=== PATIENT | male | born 1950 | race Caucasian/White ===

== ENCOUNTER 2019-08-23 09:35 | Emergency (ER) | payer MEDICARE, BC ==
[2019-08-23] MEDS ORDERED: Ondansetron 4 MG/2 ML SDV IVPUSH ONE (10:20)
[2019-08-23] MEDS ORDERED: Sodium Chloride 0.9% 10 ML Syringe FLUSH PRN (10:20)
[2019-08-23] MEDS ORDERED: HYDROmorphone 1 MG/ML Syringe IVPUSH ONE (10:21)
[2019-08-23] MEDS ORDERED: Iopamidol 612 MG/ML 100 ML Bottle IVPUSH ONE (10:28)
[2019-08-23] MEDS ORDERED: Sodium Chloride 0.9% 10 ML Syringe FLUSH ONE (10:28)
[2019-08-23] MEDS ORDERED: Sodium Chloride 0.9% 1,000 ML IV SCH (10:30)
--- NOTE | 2019-08-23 11:04 | CT ---
CT abdomen and pelvis Technique: Multiple axial sections were obtained from above the dome of the diaphragm inferiorly through the pubic symphysis. Intravenous contrast was utilized. No oral contrast has been given. Delayed images were obtained through the abdomen and pelvis. Findings: Multiple loops of small bowel show wall thickening. Hazy inflammatory change is seen surrounding some of the bowel loops. Visualized lung bases show nothing acute. Liver shows no discrete abnormality. Small hiatal hernia is noted. Spleen size is normal. Adrenal glands show no nodule. Kidneys show symmetric contrast enhancement. Several nonobstructing calculi are seen within the left kidney. Delayed images shows contrast within the ureters and bladder. Parapelvic cyst is noted within the left kidney measuring 2.6 cm. Aorta shows no aneurysm. Pancreas shows no discrete abnormality. Gallbladder contains no calcified gallstones. No retroperitoneal adenopathy is seen. No pelvic mass or adenopathy is seen. Prostate gland is somewhat enlarged and shows calcifications. Impression: 1. Multiple loops of small bowel showing wall thickening and mild surrounding inflammatory change. Findings are compatible with a nonspecific enteritis. 2. Other findings as noted above which are nonacute. Diagnostic code #3 This report was dictated in MDT
--- NOTE | 2019-08-23 11:32 | EDM.PDOC ---
ED HPI GENERAL MEDICAL PROBLEM - General Chief Complaint: Abdominal Pain Stated Complaint: ABDOMINAL PAIN/VOMITING (HAS A KIDNEY STONE) Time Seen by Provider: 08/23/19 10:12 Source of Information: Reports: Patient History Limitations: Reports: No Limitations - History of Present Illness INITIAL COMMENTS - FREE TEXT/NARRATIVE: The patient presents with lower abdominal pain. This started earlier this morning. He had some nausea and vomiting. He has no fever, chills, cough, congestion, chest pain or shortness of breath. He has no dysuria, hematuria or flank pain. He still has his gallbladder and appendix. Onset: Sudden Duration: Hour(s): Location: Reports: Abdomen Quality: Reports: Sharp Severity: Severe Improves with: Reports: None Worsens with: Reports: None Associated Symptoms: Reports: Nausea/Vomiting. Denies: Chest Pain, Cough, Fever /Chills, Headaches, Shortness of Breath Treatments MENTAL HEALTH PROGRAM SPECIALIST: Reports: Other (see below) Other Treatments MENTAL HEALTH PROGRAM SPECIALIST: none Right Abdomen Pain Score (Numeric/FACES): 10 - Related Data Allergies Allergy/AdvReac Type Severity Reaction Status Date / Time No Known Allergies Allergy Verified 10/05/13 15:06 Home Meds: Home Meds Enalapril [Vasotec] 10 mg PO BID 10/05/13 [History] Amoxicillin/Clavulanate K [Augmentin 875-125 MG] 1 tab PO BID #20 tablet [Rx] Multivitamin [Multivitamins] 1 cap PO DAILY 08/23/19 [History] Ondansetron [Zofran ODT] 4 mg PO Q6H PRN #20 tab.dis 08/23/19 [Rx] Past Medical History Cardiovascular History: Reports: Hypertension Musculoskeletal History: Reports: Other (See Below) Other Musculoskeletal History: light index amputation Social & Family History - Tobacco Use Smoking Status *Q: Current Every Day Smoker Years of Tobacco use: 40 Packs/Tins Daily: 0.5 - Caffeine Use Caffeine Use: Reports: Coffee, Soda - Recreational Drug Use Recreational Drug Use: No ED ROS GENERAL - Review of Systems Review Of Systems: See Below Constitutional: Reports: No Symptoms HEENT: Reports: No Symptoms Respiratory: Reports: No Symptoms Cardiovascular: Reports: No Symptoms Endocrine: Reports: No Symptoms GI/Abdominal: Reports: Abdominal Pain, Nausea, Vomiting. Denies: Diarrhea : Reports: No Symptoms Musculoskeletal: Reports: No Symptoms Skin: Reports: No Symptoms ED EXAM, GI/ABD - Physical Exam Exam: See Below Exam Limited By: No Limitations General Appearance: Alert, No Apparent Distress Ears: Normal External Exam Nose: Normal Inspection Head: Atraumatic, Normocephalic Neck: Normal Inspection Respiratory/Chest: No Respiratory Distress, Lungs Clear, Normal Breath Sounds Cardiovascular: Regular Rate, Rhythm, No Edema, No Murmur GI/Abdominal Exam: Soft, No Organomegaly, No Mass, Tender (Moderate to sever with rebound and regidity) Course - Vital Signs Last Recorded V/S: Last Vital Signs Temp 95.7 F L 08/23/19 10:09 Pulse 65 08/23/19 10:09 Resp 22 H 08/23/19 10:09 BP 143/71 H 08/23/19 10:09 Pulse Ox 99 08/23/19 10:09 - Orders/Labs/Meds Orders: Active Orders 24 hr Category Date Time Status Peripheral IV Care [RC] . DIRECTED Care 08/23/19 10:20 Active UA W/MICROSCOPIC [URIN] Stat Lab 08/23/19 10:20 Stop Req Sodium Chloride 0.9% [Normal Saline] 1,000 ml Med 08/23/19 10:30 Active IV ASDIRECTED Sodium Chloride 0.9% [Saline Flush] Med 08/23/19 10:20 Active 10 ml FLUSH ASDIRECTED PRN ED Antiemetic Medication Reflex [OM.PC] Stat Oth 08/23/19 10:20 Ordered Peripheral IV Insertion Adult [OM.PC] Stat Oth 08/23/19 10:20 Ordered Medication Orders Sodium Chloride (Normal Saline) 1,000 mls @ 125 mls/hr IV ASDIRECTED RICH Last Admin: 08/23/19 10:43 Dose: 125 mls/hr Sodium Chloride (Saline Flush) 10 ml FLUSH ASDIRECTED PRN PRN Reason: Keep Vein Open Last Admin: 08/23/19 10:44 Dose: 10 ml Labs: Laboratory Tests 08/23/19 08/23/19 Range/Units 10:31 10:31 WBC 4.54 (4.23-9.07) K/mm3 RBC 4.82 (4.63-6.08) M/mm3 Hgb 14.7 (13.7-17.5) gm/dl Hct 43.9 (40.1-51.0) % MCV 91.1 (79.0-92.2) fl MCH 30.5 (25.7-32.2) pg MCHC 33.5 (32.2-35.5) g/dl RDW Std Deviation 43.9 (35.1-43.9) fL Plt Count 212 (163-337) K/mm3 MPV 9.4 (9.4-12.3) fl Neut % (Auto) 70.3 H (34.0-67.9) % Lymph % (Auto) 23.6 (21.8-53.1) % [place] % (Auto) 4.6 L (5.3-12.2) % Eos % (Auto) 0.9 (0.8-7.0) Baso % (Auto) 0.4 (0.1-1.2) % Neut # (Auto) 3.19 (1.78-5.38) K/mm3 Lymph # (Auto) 1.07 L (1.32-3.57) K/mm3 [place] # (Auto) 0.21 L (0.30-0.82) K/mm3 Eos # (Auto) 0.04 (0.04-0.54) K/mm3 Baso # (Auto) 0.02 (0.01-0.08) K/mm3 Sodium 140 (136-145) mEq/L Potassium 4.2 (3.5-5.1) mEq/L Chloride 102 (98-107) mEq/L Carbon Dioxide 25 (21-32) mEq/L Anion Gap 17.2 H (5-15) BUN 21 H (7-18) mg/dL Creatinine 1.2 (0.7-1.3) mg/dL Est Cr Clr Drug Dosing 52.43 mL/min Estimated GFR (MDRD) > 60 (>60) mL/min BUN/Creatinine Ratio 17.5 (14-18) Glucose 171 H (80-115) mg/dL Calcium 9.1 (8.5-10.1) mg/dL Total Bilirubin 0.6 (0.2-1.0) mg/dL AST 20 (15-37) U/L ALT 31 (16-63) U/L Alkaline Phosphatase 49 (46-116) U/L Total Protein 7.1 (6.4-8.2) g/dl Albumin 4.1 (3.4-5.0) g/dl Globulin 3.0 gm/dL Albumin/Globulin Ratio 1.4 (1-2) Lipase 135 (73-393) U/L Meds: Medications Generic Name Dose Route Start Last Admin Trade Name Freq PRN Reason Stop Dose Admin Sodium Chloride 1,000 mls @ 125 mls/hr 08/23/19 10:30 08/23/19 10:43 Normal Saline IV 125 mls/hr ASDIRECTED RICH Administration Sodium Chloride 10 ml 08/23/19 10:20 08/23/19 10:44 Saline Flush FLUSH 10 ml ASDIRECTED PRN Administration Keep Vein Open Discontinued Medications Generic Name Dose Route Start Last Admin Trade Name Freq PRN Reason Stop Dose Admin Hydromorphone HCl 1 mg 08/23/19 10:21 08/23/19 10:44 Dilaudid IVPUSH 08/23/19 10:22 1 mg ONETIME ONE Administration Iopamidol 100 ml 08/23/19 10:28 08/23/19 10:35 Isovue-300 (61%) IVPUSH 08/23/19 10:29 100 ml ONETIME ONE Administration Ketorolac Tromethamine 30 mg 08/23/19 11:39 08/23/19 11:44 Toradol IVPUSH 08/23/19 11:40 30 mg ONETIME ONE Administration Ondansetron HCl 4 mg 08/23/19 10:20 08/23/19 10:44 Zofran IVPUSH 08/23/19 10:21 4 mg ONETIME ONE Administration Sodium Chloride 10 ml 08/23/19 10:28 08/23/19 10:35 Saline Flush FLUSH 08/23/19 10:29 10 ml ONETIME ONE Administration - Re-Assessments/Exams Free Text/Narrative Re-Assessment/Exam: 08/23/19 11:30 I ordered an IV NS at 125mL/hr, zofran 4mg IV, dilaudid 1mg IV, labs and a CT of his abdomen and pelvis with IV contrast. His CBC and CMP look good. His lipase is normal. His CT shows multiple loops of small bowel showing wall thickening and mild surrounding inflammatory change. Findings are compatible with a nonspecific enteritis. Other findings which are nonacute. Departure - Departure Time of Disposition: 12:30 Disposition: Home, Self-Care 01 Condition: Good Clinical Impression: Enteritis - Discharge Information *PRESCRIPTION DRUG MONITORING PROGRAM REVIEWED*: Not Applicable *COPY OF PRESCRIPTION DRUG MONITORING REPORT IN PATIENT LIBBY: Not Applicable Prescriptions: Amoxicillin/Clavulanate K [Augmentin 875-125 MG] 1 tab PO BID #20 tablet Ondansetron [Zofran ODT] 4 mg PO Q6H PRN #20 tab.dis PRN Reason: Nausea\vomiting Referrals: Baylee Vargas [employer] FINISHER [Primary Care Provider] - 1 Week Forms: ED Department Discharge Additional Instructions: Take the augmenting 2 times per day for 10 days. Drink plenty of fluids. Take zofran every 6 hours as needed for nausea and vomiting. Take tylenol or motirn as needed for pain. Please return if you are wore. Sepsis Event Note - Evaluation Sepsis Screening Result: No Definite Risk - Focused Exam Vital Signs: Vital Signs Temp Pulse Resp BP Pulse Ox 08/23/19 10:09 95.7 F L 65 22 H 143/71 H 99 Date Exam was Performed: 08/23/19 Time Exam was Performed: 12:27 - My Orders Last 24 Hours: My Active Orders 08/23/19 10:20 Peripheral IV Care [RC] . DIRECTED UA W/MICROSCOPIC [URIN] Stat Sodium Chloride 0.9% [Saline Flush] 10 ml FLUSH ASDIRECTED PRN ED Antiemetic Medication Reflex [OM.PC] Stat Peripheral IV Insertion Adult [OM.PC] Stat 08/23/19 10:30 Sodium Chloride 0.9% [Normal Saline] 1,000 ml IV ASDIRECTED - Assessment/Plan Last 24 Hours: My Active Orders 08/23/19 10:20 Peripheral IV Care [RC] . DIRECTED UA W/MICROSCOPIC [URIN] Stat Sodium Chloride 0.9% [Saline Flush] 10 ml FLUSH ASDIRECTED PRN ED Antiemetic Medication Reflex [OM.PC] Stat Peripheral IV Insertion Adult [OM.PC] Stat 08/23/19 10:30 Sodium Chloride 0.9% [Normal Saline] 1,000 ml IV ASDIRECTED
[2019-08-23] MEDS ORDERED: Ketorolac 30 MG/ML SDV IVPUSH ONE (11:39)
== END 2019-08-23 12:45 | disposition home or self-care (01) ==
LOC: JD.ED 09:35
DX: K52.9 Noninfective gastroenteritis and colitis, unspecified (principal); I10 Essential (primary) hypertension; F17.210 Nicotine dependence, cigarettes, uncomplicated; Z79.899 Other long term (current) drug therapy
CPT/HCPCS: 36415; 74177; 80053; 83690; 85025; 96361; 96374; 96375; 99284; J1170; J1885; J2405; J7030; Q9967

== ENCOUNTER 2019-09-04 18:05 | Emergency (ER) | payer MEDICARE, BC ==
[2019-09-04] MEDS ORDERED: Ketorolac 30 MG/ML SDV IVPUSH ONE (18:40)
[2019-09-04] MEDS ORDERED: Ondansetron 4 MG/2 ML SDV IVPUSH ONE (18:40)
[2019-09-04] MEDS ORDERED: Sodium Chloride 0.9% 10 ML Syringe FLUSH PRN ×2 (18:40→18:44)
--- NOTE | 2019-09-04 18:43 | EDM.PDOC ---
ED HPI GENERAL MEDICAL PROBLEM - General Chief Complaint: Abdominal Pain Stated Complaint: ABDOMINAL PAIN,VOMITING,DIAHRREA Time Seen by Provider: 09/04/19 18:21 Source of Information: Reports: Patient, Family History Limitations: Reports: No Limitations - History of Present Illness INITIAL COMMENTS - FREE TEXT/NARRATIVE: Patient is a 68-year-old male who presents to the emergency department with complaints of lower abdominal pain. He was seen in this emergency department approximately 2 weeks ago for the same complaint. He states that since that time, the pain did improve slightly, however has always been present to some degree. This morning he experienced worsening of the pain. Pain worsens in intensity with eating. He also had nausea and vomiting today which was new for him. Throughout the duration of this, he has had watery diarrhea as well as excessive belching and night sweats. He also complains of some nonspecific right upper quadrant abdominal/rib pain that is been present for about the last 3 days. He denies any known fever or chills. He has had no previous abdominal surgeries and has no known abdominal pathology. He has been using Tylenol as needed for pain. Last dose was around 2 PM this afternoon. He currently has an appointment scheduled his primary care provider, Lis Vargas, on Tuesday. Abdomen Pain Score (Numeric/FACES): 9 - Related Data Allergies Allergy/AdvReac Type Severity Reaction Status Date / Time No Known Allergies Allergy Verified 09/04/19 18:18 Home Meds: Home Meds Enalapril [Vasotec] 10 mg PO BID 10/05/13 [History] Amoxicillin/Clavulanate K [Augmentin 875-125 MG] 1 tab PO BID #20 tablet [Rx] Multivitamin [Multivitamins] 1 cap PO DAILY 08/23/19 [History] Ondansetron [Zofran ODT] 4 mg PO Q6H PRN #20 tab.dis 08/23/19 [Rx] Past Medical History Cardiovascular History: Reports: Hypertension Gastrointestinal History: Reports: Other (See Below) Other Gastrointestinal History: gastroenteritis Musculoskeletal History: Reports: Other (See Below) Other Musculoskeletal History: light index amputation Social & Family History - Tobacco Use Smoking Status *Q: Never Smoker - Caffeine Use Caffeine Use: Reports: None - Recreational Drug Use Recreational Drug Use: No ED ROS GENERAL - Review of Systems Review Of Systems: See Below Constitutional: Reports: Fatigue, Night Sweats. Denies: Fever, Chills HEENT: Reports: No Symptoms Respiratory: Denies: Shortness of Breath, Cough Cardiovascular: Reports: No Symptoms. Denies: Chest Pain, Lightheadedness, Palpitations Endocrine: Reports: No Symptoms GI/Abdominal: Reports: Abdominal Pain, Diarrhea, Nausea, Vomiting. Denies: Bloody Stool, Hematemesis, Hematochezia ED EXAM, GI/ABD - Physical Exam Exam: See Below Exam Limited By: No Limitations General Appearance: Alert, WD/WN, No Apparent Distress Respiratory/Chest: No Respiratory Distress, Lungs Clear, Normal Breath Sounds, No Accessory Muscle Use, Chest Non-Tender Cardiovascular: Normal Peripheral Pulses, Regular Rate, Rhythm, No Edema, No Gallop, No JVD, No Murmur, No Rub GI/Abdominal Exam: Normal Bowel Sounds, Soft, No Organomegaly, No Distention, No Abnormal Bruit, No Mass, Pelvis Stable, Tender (Right lower quadrant, left lower quadrant, and right upper quadrant). No: Guarding (.), Rigid, Rebound Extremities: Normal Inspection, Normal Range of Motion, Non-Tender, Normal Capillary Refill, No Pedal Edema Neurological: Alert, Oriented, CN II-XII Intact, Normal Cognition, Normal Gait, Normal Reflexes, No Motor/Sensory Deficits Psychiatric: Normal Affect, Normal Mood Skin Exam: Warm, Dry, Intact, Normal Color, No Rash Course - Vital Signs Last Recorded V/S: Last Vital Signs Temp 98.6 F 09/04/19 18:16 Pulse 97 09/04/19 18:16 Resp 16 09/04/19 18:16 BP 144/61 H 09/04/19 18:16 Pulse Ox 96 09/04/19 18:16 - Orders/Labs/Meds Orders: Active Orders 24 hr Category Date Time Status Peripheral IV Care [RC] . DIRECTED Care 09/04/19 18:41 Active CULTURE BLOOD [BC] Stat Lab 09/04/19 21:07 Received CULTURE BLOOD [BC] Stat Lab 09/04/19 21:07 Received LACTIC ACID [CHEM] Stat Lab 09/04/19 21:07 Received STOOL CULTURE/SHIGA TOXIN [MREF] Stat Lab 09/04/19 18:50 Received Piperacillin/Tazobactam [Piperacil-Tazobact] 4.5 gm Med 09/04/19 21:05 Active Sodium Chloride 0.9% [Normal Saline] 100 ml IV ONETIME Sodium Chloride 0.9% [Normal Saline] 1,000 ml Med 09/04/19 18:45 Active IV ASDIRECTED Sodium Chloride 0.9% [Normal Saline] 1,000 ml Med 09/04/19 21:15 Active IV ASDIRECTED Sodium Chloride 0.9% [Saline Flush] Med 09/04/19 18:40 Active 10 ml FLUSH ASDIRECTED PRN Sodium Chloride 0.9% [Saline Flush] [facility] 09/04/19 18:44 Active 10 ml FLUSH ONETIME PRN Blood Culture x2 Reflex Set [OM.PC] Stat Ot 09/04/19 20:54 Ordered Peripheral IV Insertion Adult [OM.PC] Stat Ot 09/04/19 18:39 Ordered Medication Orders Sodium Chloride (Normal Saline) 1,000 mls @ 999 mls/hr IV ASDIRECTED [facility] Last Admin: 09/04/19 18:54 Dose: 999 mls/hr Piperacillin Sod/Tazobactam (Sod 4.5 gm/ Sodium Chloride) 100 mls @ 200 mls/hr IV ONETIME ONE Stop: 09/04/19 21:34 Last Admin: 09/04/19 21:21 Dose: 200 mls/hr Sodium Chloride (Normal Saline) 1,000 mls @ 150 mls/hr IV ASDIRECTED [facility] Last Admin: 09/04/19 21:21 Dose: 150 mls/hr Sodium Chloride (Saline Flush) 10 ml FLUSH ASDIRECTED PRN PRN Reason: Keep Vein Open Last Admin: 09/04/19 20:02 Dose: 10 ml Sodium Chloride (Saline Flush) 10 ml FLUSH ONETIME PRN PRN Reason: Keep Vein Open Last Admin: 09/04/19 20:11 Dose: 10 ml Labs: Laboratory Tests 09/04/19 09/04/19 09/04/19 Range/Units 18:24 18:50 18:52 WBC 15.72 H (4.23-9.07) K/mm3 RBC 4.35 L (4.63-6.08) M/mm3 Hgb 13.2 L D (13.7-17.5) gm/dl Hct 40.0 L (40.1-51.0) % MCV 92.0 (79.0-92.2) fl MCH 30.3 (25.7-32.2) pg MCHC 33.0 (32.2-35.5) g/dl RDW Std Deviation 44.9 H (35.1-43.9) fL Plt Count 595 H D (163-337) K/mm3 MPV 8.8 L (9.4-12.3) fl Neut % (Auto) 87.0 H (34.0-67.9) % Lymph % (Auto) 5.2 L (21.8-53.1) % [place] % (Auto) 7.3 (5.3-12.2) % Eos % (Auto) 0.1 L (0.8-7.0) Baso % (Auto) 0.2 (0.1-1.2) % Neut # (Auto) 13.67 H (1.78-5.38) K/mm3 Lymph # (Auto) 0.82 L (1.32-3.57) K/mm3 [place] # (Auto) 1.15 H (0.30-0.82) K/mm3 Eos # (Auto) 0.02 L (0.04-0.54) K/mm3 Baso # (Auto) 0.03 (0.01-0.08) K/mm3 Manual Slide Review Abnormal smear Sodium (136-145) mEq/L Potassium (3.5-5.1) mEq/L Chloride (98-107) mEq/L Carbon Dioxide (21-32) mEq/L Anion Gap (5-15) BUN (7-18) mg/dL Creatinine (0.7-1.3) mg/dL Est Cr Clr Drug Dosing mL/min Estimated GFR (MDRD) (>60) mL/min BUN/Creatinine Ratio (14-18) Glucose (80-115) mg/dL Calcium (8.5-10.1) mg/dL Total Bilirubin (0.2-1.0) mg/dL AST (15-37) U/L ALT (16-63) U/L Alkaline Phosphatase (46-116) U/L C-Reactive Protein (<1.0) mg/dL Total Protein (6.4-8.2) g/dl Albumin (3.4-5.0) g/dl Globulin gm/dL Albumin/Globulin Ratio (1-2) Lipase (73-393) U/L Urine Color Yellow (Yellow) Urine Appearance Clear (Clear) Urine pH 5.5 (5.0-8.0) Ur Specific [place] > or = 1.030 (1.005-1.030) Urine Protein 1+ H (Negative) Urine Glucose (UA) Negative (Negative) Urine Ketones 1+ H (Negative) Urine Occult Blood Negative (Negative) Urine Nitrite Negative (Negative) Urine Bilirubin 1+ H (Negative) Urine Urobilinogen 0.2 (0.2-1.0) Ur Leukocyte Esterase Negative (Negative) Urine RBC 0-5 (0-5) /hpf Urine WBC 0-5 (0-5) /hpf Ur Squamous Epith Cells 0-5 (0-5) /hpf Calcium Oxalate Crystal Few H (NONE) Urine Bacteria Few (FEW) /hpf Urine Mucus Many H (FEW) /hpf C.difficile [id number] Presumptive negative C. difficile Tox (PCR) Negative 09/04/19 09/04/19 Range/Units 18:52 18:52 WBC (4.23-9.07) K/mm3 RBC (4.63-6.08) M/mm3 Hgb (13.7-17.5) gm/dl Hct (40.1-51.0) % MCV (79.0-92.2) fl MCH (25.7-32.2) pg MCHC (32.2-35.5) g/dl RDW Std Deviation (35.1-43.9) fL Plt Count (163-337) K/mm3 MPV (9.4-12.3) fl Neut % (Auto) (34.0-67.9) % Lymph % (Auto) (21.8-53.1) % [place] % (Auto) (5.3-12.2) % Eos % (Auto) (0.8-7.0) Baso % (Auto) (0.1-1.2) % Neut # (Auto) (1.78-5.38) K/mm3 Lymph # (Auto) (1.32-3.57) K/mm3 [place] # (Auto) (0.30-0.82) K/mm3 Eos # (Auto) (0.04-0.54) K/mm3 Baso # (Auto) (0.01-0.08) K/mm3 Manual Slide Review Sodium 138 (136-145) mEq/L Potassium 4.3 (3.5-5.1) mEq/L Chloride 100 (98-107) mEq/L Carbon Dioxide 26 (21-32) mEq/L Anion Gap 16.3 H (5-15) BUN 24 H (7-18) mg/dL Creatinine 1.1 (0.7-1.3) mg/dL Est Cr Clr Drug Dosing 57.19 mL/min Estimated GFR (MDRD) > 60 (>60) mL/min BUN/Creatinine Ratio 21.8 H (14-18) Glucose 134 H (80-115) mg/dL Calcium 9.0 (8.5-10.1) mg/dL Total Bilirubin 0.6 (0.2-1.0) mg/dL AST 76 H (15-37) U/L ALT 227 H (16-63) U/L Alkaline Phosphatase 203 H (46-116) U/L C-Reactive Protein 17.1 H* (<1.0) mg/dL Total Protein 7.4 (6.4-8.2) g/dl Albumin 3.0 L (3.4-5.0) g/dl Globulin 4.4 gm/dL Albumin/Globulin Ratio 0.7 L (1-2) Lipase 142 (73-393) U/L Urine Color (Yellow) Urine Appearance (Clear) Urine pH (5.0-8.0) Ur Specific [place] (1.005-1.030) Urine Protein (Negative) Urine Glucose (UA) (Negative) Urine Ketones (Negative) Urine Occult Blood (Negative) Urine Nitrite (Negative) Urine Bilirubin (Negative) Urine Urobilinogen (0.2-1.0) Ur Leukocyte Esterase (Negative) Urine RBC (0-5) /hpf Urine WBC (0-5) /hpf Ur Squamous Epith Cells (0-5) /hpf Calcium Oxalate Crystal (NONE) Urine Bacteria (FEW) /hpf Urine Mucus (FEW) /hpf C.difficile [id number] C. difficile Tox (PCR) Meds: Medications Generic Name Dose Route Start Last Admin Trade Name Freq PRN Reason Stop Dose Admin Sodium Chloride 1,000 mls @ 999 mls/hr 09/04/19 18:45 09/04/19 18:54 Normal Saline IV 999 mls/hr ASDIRECTED RICH Administration Piperacillin Sod/Tazobactam 100 mls @ 200 mls/hr 09/04/19 21:05 09/04/19 21: 21 Sod 4.5 gm/ Sodium Chloride IV 09/04/19 21:34 200 mls/hr ONETIME ONE Administration Sodium Chloride 1,000 mls @ 150 mls/hr 09/04/19 21:15 09/04/19 21:21 Normal Saline IV 150 mls/hr ASDIRECTED RICH Administration Sodium Chloride 10 ml 09/04/19 18:40 09/04/19 20:02 Saline Flush FLUSH 10 ml ASDIRECTED PRN Administration Keep Vein Open Sodium Chloride 10 ml 09/04/19 18:44 09/04/19 20:11 Saline Flush FLUSH 10 ml ONETIME PRN Administration Keep Vein Open Discontinued Medications Generic Name Dose Route Start Last Admin Trade Name Freq PRN Reason Stop Dose Admin Diatrizoate Meglum/Diatrizoate Sod 40 ml 09/04/19 18:44 09/04/19 20:00 Gastrografin 37% PO 09/04/19 18:45 40 ml ONETIME ONE Administration Iopamidol 100 ml 09/04/19 18:44 09/04/19 20:00 Isovue-300 (61%) IVPUSH 09/04/19 18:45 100 ml ONETIME ONE Administration Ketorolac Tromethamine 30 mg 09/04/19 18:40 09/04/19 18:56 Toradol IVPUSH 09/04/19 18:41 30 mg ONETIME ONE Administration Ondansetron HCl 4 mg 09/04/19 18:40 09/04/19 18:55 Zofran IVPUSH 09/04/19 18:41 4 mg ONETIME ONE Administration - Re-Assessments/Exams Free Text/Narrative Re-Assessment/Exam: Patient is a 68-year-old male with a 2-week history of lower abdominal pain and a 3-day history of right upper quadrant abdominal pain. He recently completed treatment with Augmentin for a generalized enteritis, however his symptoms worsen despite this. We will repeat work-up including CBC, CMP, CRP, urinalysis , CT of the abdomen and pelvis. I have ordered a 1 L bolus of normal saline, Zofran for nausea, and Toradol for pain. We will also collect stool studies as he has been having ongoing diarrhea. 09/04/19 21:26 Hematology was significant for WBC elevated at 15.72, hemoglobin slightly low at 8.2, platelets elevated at 595, he does have a significant left shift. Anion gap slightly increased at 16.3, AST elevated at 76, ALT elevated to 27, alk phos elevated at 203, CRP 17.1. Urinalysis was positive for 1+ bili, 1+ ketones, and 1+ protein, was negative for signs of infection. CT of the abdomen this shows a 8.2 cm pelvic abscess most likely representing diverticular abscess directly superior to the bladder. Dilated small bowel loops compatible with small bowel obstruction with transition point close to the abscess. Diverticulosis is seen within the sigmoid colon with hazy inflammatory change seen extending to the abscess compatible with diverticulitis. Nonobstructing calculi within the left kidney. Spoke to the surgeon on-call, Dr. Abarca. She recommended that we transfer the patient to [place] to consult interventional radiology. Called [facility] in [place]. Spoke with surgeon Dr. Briggs. He recommended that the patient be transferred and admitted under the hospitalist. Recommend we start him on Zosyn IV. Spoke to the hospitalist, Dr. Sullivan. He accepted the patient for transfer. I have added on blood cultures and a lactic acid prior to giving the antibiotics. Patient will go by ground ambulance. Departure - Departure Time of Disposition: 21:04 Disposition: DC/Tfer to Acute Hospital 02 Condition: Good Clinical Impression: Diverticulitis of intestine with abscess Qualifiers: Diverticulitis site: unspecified part of intestinal tract Diverticulitis bleeding: without bleeding Qualified Code(s): K57.80 - Diverticulitis of intestine, part unspecified, with perforation and abscess without bleeding - Discharge Information Referrals: Baylee Vargas, [employer] [Primary Care Provider] - Forms: ED Department Discharge Sepsis Event Note - Evaluation Sepsis Screening Result: No Definite Risk - Focused Exam Vital Signs: Vital Signs Temp Pulse Resp BP Pulse Ox 09/04/19 18:16 98.6 F 97 16 144/61 H 96 Date Exam was Performed: 09/04/19 Time Exam was Performed: 21:31 - My Orders Last 24 Hours: My Active Orders 09/04/19 18:39 Peripheral IV Insertion Adult [OM.PC] Stat 09/04/19 18:40 Sodium Chloride 0.9% [Saline Flush] 10 ml FLUSH ASDIRECTED PRN 09/04/19 18:41 Peripheral IV Care [RC] . DIRECTED 09/04/19 18:44 Sodium Chloride 0.9% [Saline Flush] 10 ml FLUSH ONETIME PRN 09/04/19 18:45 Sodium Chloride 0.9% [Normal Saline] 1,000 ml IV ASDIRECTED 09/04/19 18:50 STOOL CULTURE/SHIGA TOXIN [MREF] Stat 09/04/19 20:54 Blood Culture x2 Reflex Set [OM.PC] Stat 09/04/19 21:05 Piperacillin/Tazobactam [Piperacil-Tazobact] 4.5 gm Sodium Chloride 0.9% [ Normal Saline] 100 ml IV ONETIME 09/04/19 21:07 CULTURE BLOOD [BC] Stat CULTURE BLOOD [BC] Stat LACTIC ACID [CHEM] Stat 09/04/19 21:15 Sodium Chloride 0.9% [Normal Saline] 1,000 ml IV ASDIRECTED - Assessment/Plan Last 24 Hours: My Active Orders 09/04/19 18:39 Peripheral IV Insertion Adult [OM.PC] Stat 09/04/19 18:40 Sodium Chloride 0.9% [Saline Flush] 10 ml FLUSH ASDIRECTED PRN 09/04/19 18:41 Peripheral IV Care [RC] . DIRECTED 09/04/19 18:44 Sodium Chloride 0.9% [Saline Flush] 10 ml FLUSH ONETIME PRN 09/04/19 18:45 Sodium Chloride 0.9% [Normal Saline] 1,000 ml IV ASDIRECTED 09/04/19 18:50 STOOL CULTURE/SHIGA TOXIN [MREF] Stat 09/04/19 20:54 Blood Culture x2 Reflex Set [OM.PC] Stat 09/04/19 21:05 Piperacillin/Tazobactam [Piperacil-Tazobact] 4.5 gm Sodium Chloride 0.9% [ Normal Saline] 100 ml IV ONETIME 09/04/19 21:07 CULTURE BLOOD [BC] Stat CULTURE BLOOD [BC] Stat LACTIC ACID [CHEM] Stat 09/04/19 21:15 Sodium Chloride 0.9% [Normal Saline] 1,000 ml IV ASDIRECTED
[2019-09-04] MEDS ORDERED: Diatrizoate Meglumine/Diatrizoate Sodium 37% 120 ML Bottle PO ONE (18:44)
[2019-09-04] MEDS ORDERED: Iopamidol 612 MG/ML 100 ML Bottle IVPUSH ONE (18:44)
[2019-09-04] MEDS ORDERED: Sodium Chloride 0.9% 1,000 ML IV SCH ×2 (18:45→21:15)
--- NOTE | 2019-09-04 20:33 | CT ---
CT abdomen and pelvis Technique: Multiple axial sections were obtained from above the dome of the diaphragm inferiorly through the pubic symphysis. Intravenous contrast was utilized. Oral contrast has also been given. Findings: Fluid-filled collection containing air is seen within the pelvis with greatest dimension of 8.2 cm. This is located directly superior to the bladder and is felt compatible with an abscess. Dilated small bowel loops are seen compatible with small bowel obstruction. Transitional point appears to be near this abscess. Diverticuli are seen within the sigmoid colon near this area and this may represent a diverticular abscess. Slight inflammatory changes seen between the diverticuli and abscess compatible with diverticulitis. Visualized lung bases shows minimal atelectasis. Liver contains no focal parenchymal abnormality. Contrast reflux seen into the esophagus. Spleen appears normal. Kidneys show symmetric contrast enhancement. Nonobstructing calculi are seen within the left kidney with the largest measuring 7 mm. Aorta shows no aneurysm. Adrenal glands show no nodule. Pancreas is within normal limits. Gallbladder contains no calcified gallstones. No discrete pelvic mass is noted. Small fat-containing bilateral inguinal hernias noted. Prostate gland is mildly enlarged containing calcifications. Bladder wall is thickened most likely representing change from an element of bladder outlet obstruction. Impression: 1. Findings compatible with pelvic abscess most likely representing diverticular abscess. This measures up to 8.2 cm. This is located directly superior to the bladder. 2. Dilated small bowel loops compatible with small bowel obstruction with transitional point being close to this abscess. 3. Diverticulosis is seen within the sigmoid colon with hazy inflammatory change being seen extending to the abscess compatible with diverticulitis. 4. Nonobstructing calculi within the left kidney. 5. Other findings as noted above believed to be nonacute. Diagnostic code #5 This report was dictated in [facility]
[2019-09-04] MEDS ORDERED: Piperacillin/Tazobactam 4.5 GM in Sodium Chloride 0.9% 100 ML IV ONE (21:05)
== END 2019-09-04 22:10 ==
LOC: JD.ED 18:05
DX: K57.80 Diverticulitis of intestine, part unspecified, with perforation and abscess without bleeding (principal); I10 Essential (primary) hypertension; Z79.899 Other long term (current) drug therapy
CPT/HCPCS: 36415; 74177; 80053; 81001; 83605; 83690; 85025; 86140; 87040; 87045; 87046; 87493; 87899; 89055; 96361; 96365; 96375; 99285; J1885; J2405; J2543; J7030; J7050; Q9963; Q9967; 99284

== ENCOUNTER 2024-01-14 06:00 | Emergency (ER) | payer MEDICARE, BC ==
[2024-01-14 07:07] LABS: INFLUENZA A NAA NEGATIVE (NEGATIVE); RESPIRATORY SYNCYTIAL VIR NAA NEGATIVE (NEGATIVE)
[2024-01-14 07:28] LABS: CORONAVIRUS COVID-19 NAA POSITIVE (NEGATIVE)
== END 2024-01-14 10:34 | disposition home or self-care (01) ==
LOC: JD.ED 06:00
DX: U07.1 COVID-19 (principal); I10 Essential (primary) hypertension; Z79.899 Other long term (current) drug therapy
CPT/HCPCS: 0241U; 71046; 99283